=== PATIENT | female | born 1995 | race Caucasian/White ===

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

== ENCOUNTER 2017-03-07 23:11 | Emergency (ER) | payer BC, MEDICAID ==
[~2017-03-07] VITALS: Ht 167.6 cm; Wt 63.6 kg
[2017-03-07 23:16] VITALS: BP 111/53; PULSE 78; TEMP 98.6
[2017-03-08 00:16] LABS: BASO # 0.1 (0.0-0.2); BASO % 0.7 % (0.0-2.0); EOS # 0.1 (0.0-0.7); EOS % 1.2 % (0-4.0); GRAN # 7.9 (1.4-6.5); GRAN % 71.5 % (42.2-75.2); LYMPH # 2.3 (1.2-3.4); MEAN CELL VOLUME 88 fl (80.0-95.0); MEAN CORPUSCULAR HGB CONC 33 g/dl (33.0-37.0); MEAN PLATELET VOLUME 9.3 fl (7.4-10.4); MONO # 0.6 (0.1-0.6); MONO % 5.1 % (1.7-9.3); PLATELET COUNT 302 K/mm3 (130-400); RED BLOOD COUNT 4.12 M/mm3 (4.10-5.30); REDCELL DISTRIBUTION WIDTH-CV 12.8 % (11.5-14.5)
[2017-03-08 00:19] LABS: HEMATOCRIT 36.1 % (35.0-45.0); HEMOGLOBIN 11.8 g/dl (12.0-15.0); MEAN CORPUSCULAR HEMOGLOBIN 29 pg (26.0-32.0)
[2017-03-08 00:28] LABS: CALCIUM 9.4 mg/dL (8.4-10.2); CREATININE, serum 0.82 mg/dL (0.52-1.25); POTASSIUM 3.8 mmol/L (3.4-5.0)
== END 2017-03-08 01:06 | disposition home or self-care (01) ==
LOC: COL.ER 23:11
PROVIDERS: Emergency Medicine
DX: N93.9 Abnormal uterine and vaginal bleeding, unspecified (principal); Z87.59 Personal history of other complications of pregnancy, childbirth and the puerperium

== ENCOUNTER 2018-04-06 02:49 | Emergency (ER) | payer BC, MEDICAID ==
[~2018-04-06] VITALS: Ht 167.6 cm; Wt 70.6 kg
[~2018-04-06 02:49] MED LIST changes: -CEPHALEXIN500 M1 PO; -CLEOCIN HCL300 MG PO; -LEVAQUIN 5500 MG/TA1 PO
[2018-04-06 02:50] VITALS: TEMP 98.6
[2018-04-06 03:12] LABS: COLLECTION METHOD CLEAN CATCH
[2018-04-06 03:14] LABS: BASO # 0.1 (0.0-0.2); BASO % 0.5 % (0.0-2.0); EOS # 0.2 (0.0-0.7); EOS % 1.2 % (0-4.0); GRAN # 13.1 (1.4-6.5); HEMOGLOBIN 11.8 g/dl (12.0-15.0); LYMPH # 2.8 (1.2-3.4); MEAN CELL VOLUME 87 fl (80.0-95.0); MEAN CORPUSCULAR HEMOGLOBIN 29 pg (26.0-32.0); MEAN CORPUSCULAR HGB CONC 33 g/dl (33.0-37.0); MEAN PLATELET VOLUME 9.5 fl (7.4-10.4); MONO % 5.9 % (1.7-9.3); PLATELET COUNT 295 K/mm3 (130-400); RED BLOOD COUNT 4.09 M/mm3 (4.10-5.30); REDCELL DISTRIBUTION WIDTH-CV 12.7 % (11.5-14.5)
[2018-04-06 03:15] LABS: HEMATOCRIT 35.5 % (35.0-45.0)
[2018-04-06 03:20] LABS: PH 6 (5-8); URINE APPEARANCE Hazy; URINE BACTERIA Rare /hpf; URINE BILIRUBIN Negative (NEGATIVE); URINE BLOOD 1+ (NEGATIVE); URINE COLOR Straw; URINE GLUCOSE Negative (NEGATIVE); URINE KETONE Negative (NEGATIVE); URINE LEUKOCYTE ESTERASE 2+ (NEGATIVE); URINE NITRATE Negative (NEGATIVE); URINE PROTEIN(semi-quant) Negative (NEGATIVE); URINE UROBILINOGEN Negative (NEGATIVE)
[2018-04-06 03:24] LABS: ALBUMIN 4.3 gm/dL (3.5-5.0); BILIRUBIN,TOTAL 0.2 mg/dL (0.0-1.0); CALCIUM 9.5 mg/dL (8.4-10.2); CREATININE, serum 0.64 mg/dL (0.52-1.25); POTASSIUM 3.6 mmol/L (3.4-5.0); TOTAL PROTEIN 7.6 gm/dL (6.4-8.2)
[2018-04-06] MEDS ORDERED: CEPHALEXIN500 M1 PO (04:10)
[2018-04-06] MEDS ORDERED: CLEOCIN HCL300 MG PO (04:18)
[2018-04-06 04:43] VITALS: BP 101/64; PULSE 78
[2018-04-06] MEDS ORDERED: LEVAQUIN 5500 MG/TA1 PO (18:05)
== END 2018-04-06 04:50 | disposition home or self-care (01) ==
LOC: COL.ER 02:49
PROVIDERS: Emergency Medicine
DX: O23.41 Unspecified infection of urinary tract in pregnancy, first trimester (principal); O23.591 Infection of other part of genital tract in pregnancy, first trimester; Z3A.08 8 weeks gestation of pregnancy
CPT/HCPCS: J7030

== ENCOUNTER 2018-04-06 16:59 | Emergency (ER) | payer BC, MEDICAID ==
[~2018-04-06] VITALS: Ht 167.6 cm; Wt 70.5 kg
[~2018-04-06 16:59] MED LIST changes: +CEPHALEXIN500 M1 PO; +CLEOCIN HCL300 MG PO
[2018-04-06 17:06] VITALS: TEMP 97.9
[2018-04-06] MEDS ORDERED: LEVAQUIN 5500 MG/TA1 PO (18:05)
[2018-04-06 18:55] VITALS: BP 98/55; PULSE 85
== END 2018-04-06 18:56 | disposition home or self-care (01) ==
LOC: COL.ER 16:59
DX: O9A.211 Injury, poisoning and certain other consequences of external causes complicating pregnancy, first trimester (principal); T36.1X1A Poisoning by cephalosporins and other beta-lactam antibiotics, accidental (unintentional), initial encounter; T36.3X1A Poisoning by macrolides, accidental (unintentional), initial encounter; O23.41 Unspecified infection of urinary tract in pregnancy, first trimester; O23.591 Infection of other part of genital tract in pregnancy, first trimester; Z3A.08 8 weeks gestation of pregnancy

== ENCOUNTER → 2018-04-06 | Outpatient (CLI) | payer BC, MEDICAID ==
[~2018-04-06] VITALS: Ht 167.6 cm; Wt 70.5 kg
[~2018-04-06] MED LIST changes: +CEPHALEXIN500 M1 PO; +CLEOCIN HCL300 MG PO; +LEVAQUIN 5500 MG/TA1 PO
[2018-04-06 15:59] VITALS: BP 99/58; PULSE 68; TEMP 99
== END ==
LOC: COL.ER 15:47
DX: Z51.81 Encounter for therapeutic drug level monitoring (principal)
CPT/HCPCS: J0696

== ENCOUNTER 2020-02-12 02:00 | Emergency (ER) | payer BC, MEDICAID ==
[~2020-02-12] VITALS: Ht 167.6 cm; Wt 52.7 kg
[~2020-02-12 02:00] MED LIST changes: +LEVAQUIN 5500 MG/TA1 PO
[2020-02-12 02:19] VITALS: TEMP 99.5
[2020-02-12 03:55] VITALS: BP 118/73; PULSE 76
== END 2020-02-12 03:55 | disposition home or self-care (01) ==
LOC: COL.ER 02:00
DX: T74.21XA Adult sexual abuse, confirmed, initial encounter (principal); N89.8 Other specified noninflammatory disorders of vagina; Z79.2 Long term (current) use of antibiotics; X58.XXXA Exposure to other specified factors, initial encounter
CPT/HCPCS: J0696

== ENCOUNTER 2023-02-14 07:07 | Day surgery (SDC) | payer BC, MEDICAID ==
[~2023-02-14] VITALS: Ht 167.6 cm; Wt 73.6 kg
[2023-02-14] MEDS ORDERED: FLAGYL500 MG PO (07:44)
[2023-02-14 08:08] VITALS: BP 103/62; PULSE 81; TEMP 98.9
[2023-02-14 10:21] VITALS: BP 91/53; PULSE 86; TEMP 97.7
[2023-02-14] MEDS ORDERED: NORCO 325 MG-51 TAB PO (10:21)
[2023-02-14 10:35] VITALS: BP 106/45; PULSE 86
[2023-02-14 10:50] VITALS: BP 97/47; PULSE 88
[2023-02-14 11:05] VITALS: BP 101/49; PULSE 72
[2023-02-14 11:30] VITALS: BP 100/62; PULSE 72
--- NOTE | 2023-02-14 11:40 | NUR ---
1021 RETURNS TO ROOM 1 FROM OR PER CART. RESP SPONTANEOUS, CLEAR. DOES NOT RESPOND TO VERBAL STIMULI. HOB ELEVATED 25 DEGREES. VITAL SIGNS OBTAINED. THIS NURSE REMAINS AT BEDSIDE 1030 SLIGHT MOVEMENT WITH GENTLE TOUCH. PERINEAL AREA GAUZE VISUALIZED WITH NO DRAINAGE OBSERVED 1035 EYES OPEN. FAMILIAIRIZED WITH SURROUNDINGS. THIS NURSE REMAINS AT SIDE. PRESLEY FERNANDEZ HERE; VISITS WITH PATIENT 1050 SIGNIFICANT OTHER HERE. PATIENT NOW AWAKE, CONVERSES APPROPRIATELY. DENIES REMEMBERING CONVERSATION WITH DR SHERWOOD. REPORTS MODERATE SURGICAL AREA DISCOMFORT/PRESSURE 1105 TOLERATES PO WATER WITHOUT NAUSEA 1110 AMBULATES TO BATHROOM WITH STANDBY ASSIST. VOIDS. GAUZE REMOVED FROM INCISIONAL SITES. WILL PLACE LUIS ALBERTO PAD INSTEAD. 1115 DISCHARGE INSTRUCITONS REVIEWED PATIENT VERBALIZES UNDERSTANDING. COPY PROVIDED IN DISCHARGE FOLDER 1126 PO NORCO GIVEN PER PATIENT REQUEST FOR MODERATE DISCOMFORT 1138 SITS ON EDGE OF BED, THEN STANDS. DRESSES WITH ASSIST OF SIGNIFICANT OTHER. PER PAD PLACED IN PANTIES, ALTHOUGH NO INCISIONAL DRAINAGE OBSERVED
== END 2023-02-14 11:26 | disposition home or self-care (01) ==
LOC: SDCO 07:07
DX: K60.5 Anorectal fistula (principal); L02.215 Cutaneous abscess of perineum; K62.89 Other specified diseases of anus and rectum; Z87.891 Personal history of nicotine dependence
CPT/HCPCS: J0690; J1100; J2405; J2704; J3010; J7120

== ENCOUNTER → 2023-02-28 | Outpatient (CLI) | payer BC, MEDICAID ==
[~2023-02-28] MED LIST changes: +FLAGYL500 MG PO; +NORCO 325 MG-51 TAB PO
== END ==
LOC: COL.RAD 12:05
DX: N83.02 Follicular cyst of left ovary (principal)
CPT/HCPCS: Q9967

== ENCOUNTER 2023-09-21 21:55 | Emergency (ER) | payer BC, MEDICAID ==
[~2023-09-21] VITALS: Ht 167.6 cm; Wt 68.2 kg
[2023-09-21 22:02] VITALS: BP 127/81; TEMP 97.4
[2023-09-21] MEDS ORDERED: Tetanus,Diphther Toxoid Adult 0.5 ML SYRINGE IM ONE (23:00)
[2023-09-21] MEDS ORDERED: Rabies Immune Globulin PF 300 UNITS/2 ML VIAL IM ONE (23:00)
[2023-09-21 23:47] VITALS: PULSE 64
== END 2023-09-21 23:47 | disposition home or self-care (01) ==
LOC: COL.ER 21:55
DX: Z20.3 Contact with and (suspected) exposure to rabies (principal)